=== PATIENT | female | born 1945 | race Caucasian/White ===

== ENCOUNTER → 2016-12-27 | Outpatient (CLI) | payer OTHER ==
[~2016-12-27] MED LIST: ADVAIR 250-501 EACH INH; AZITHROMYCIN 2250 MG; DIOVAN HCT 1601 EACH; DITROPAN XL5 M1 PO; HYDROCODON-ACE1 EAC7 PO; LOSARTAN-HCTZ1 EAC1 PO; LYRICA 75 MG CA75 MG PO; MECLIZINE 25 MG25 M1; NORCO 5-325 TA1 EACH PO; TRANSDERM-SCO1 PATC1; VALIUM2 MG; ZUPLENZ4 MG
== END ==
LOC: RAD 12:39
DX: M25.551 Pain in right hip (principal); R07.9 Chest pain, unspecified

== ENCOUNTER → 2018-01-23 | Outpatient (CLI) | payer OTHER | LOC: RAD 11:59 | DX: R07.9 Chest pain, unspecified (principal) ==

== ENCOUNTER → 2018-11-17 | Outpatient (CLI) | payer OTHER ==
[~2018-11-17] VITALS: Ht 160 cm; Wt 80.7 kg
[~2018-11-17] MED LIST changes: +LIPITOR 20 MG T20 M1 PO; +NORVASC5 MG PO; +PROAIR HFA8.5 GM INH; +XANAX 0.25 MG0.25 MG PO
[2018-11-17 07:07] LABS: HEMATOCRIT 41.6 % (37.0-47.0); HEMOGLOBIN 13.7 gm/dL (12.0-15.0); MCH 28.5 pg (26.0-34.0); MCV 86.2 fL (80.0-100.0); RBC 4.82 mil/uL (4.20-5.00); RDW 14.6 % (10.5-14.5); WBC 6.5 thou/uL (4.0-11.0)
[2018-11-17 07:12] VITALS: BP 166/75
[2018-11-17 07:16] LABS: CALCIUM 9.3 mg/dL (8.5-10.1); CREATININE 0.9 mg/dL (0.6-1.0); POTASSIUM 4.3 mmol/L (3.5-5.1)
--- NOTE | 2018-11-17 08:03 | EKG ---
[address] [address] ELECTROCARDIOGRAM REPORT Name: BG CLEANINGMARIANNE BAKER [facility] [id number] ������������������ Admission: 11/17/18 ������������������ Attend Phys: Benson Monahan MD, Discharge: ������������������ Date of : 43 Report #: [id number] ����������������������������������������������������������������� [id number] THIS REPORT FOR: //name// [facility] Test Date: 2018-11-17 Test Time: 07:18:39 Pat Name: LUIS MANUEL CLEANING Department: Room: Gender: F Joy Operator: ROSHAN : 1945 Requested By: Benson Monahan Order Number: [id number] MD: Trace Mendez Measurements Intervals [place] Rate: 72 P: 79 DE: 174 QRS: 54 QRSD: 88 T: 49 QT: 390 QTc: 427 Interpretive Statements Sinus rhythm Compared to ECG 09/16/2013 04:44:24 No significant changes Electronically Signed On 11-17-2018 8:03:00 CDT by Trace Mendez [email or web address] ��������������������������������������������� <ELECTRONICALLY SIGNED> ���������������������������������������� By: Trace Mendez MD ��������������������������������������������� 11/17/18802 7 7 Trace Mendez MD /ANANDA
--- NOTE | 2018-11-17 10:58 | NUR ---
1045----PT VOIDED PER BEDPAN APPROX. 350 MIL. FAMILY CONTINUES AT BEDSIDE. HAWA PROCTOR.
--- NOTE | 2018-11-19 13:52 | CATHLAB ---
[facility] [place] [address] INVASIVE PROCEDURE REPORT Name: LUIS MANUEL CLEANING [facility] #: [facility] [id number] ������������� Admission: 11/17/18 ������������� Attend Phys: Benson Monahan, Discharge: ��� ������������� ��� Date of : 43 Date of Service: 11/19/18 1351 �� Report #: [id number] �������� ��������������������������������������������[id number] THIS REPORT FOR: //name// APPROVED REPORT Study performed: 11/17/2018 07:31:14 Patient Details Patient Status: Out-Patient Room #: The patient is a 73 year-old female Event Personnel Benson Monahan Retort Fireman, Dylon Alexandre RN, Sonya, Crys Monitor, Daniel Hays RTR Scrub Procedures Performed Art Access - R femoral artery* Corby Access - R femoral vein 53431 Initial Mod Sed Same Phys/QHP Gr5y 105077 83871 Mod Sed Same Phys/QHP Ea 210681 Right and Left Heart Cath w/or w/o Coronarie 1032909 [facility] Aortogram Abdominal Peripheral Angio 503974 Hemostasis w/ Mynx Indication Chest pain Procedure Narrative The patient was brought electively to the Cardiac Catheterization Laboratory and was prepped and draped in a sterile manner. The Right Groin^ was infiltrated with 1% Lidocaine subcutaneous anesthesia. A Right Heart Catheterization was performed with a 7 Fr. Glen-Genny catheter and pressure were recorded. Cardiac outputs were obtained by the Thermal Dilution method. A PINNACLE 6FR TIF Sheath #[id number] sheath was inserted into the RFA^. Coronary angiography was performed using coronary diagnostic catheters. The right coronary system was accessed and visualized with a JR 4 catheter. The left coronary system was accessed and visualized with a JL 4 catheter. The left ventricle was accessed and visualized with a Pigtail catheter. Left ventriculogram was performed in MART projection. An aortogram of the femoral arteryabdominal aorta was performed. Pre-demployment femoral angiogram was performed . Closure device was deployed with a 6 Fr Mynx. Hemostasis was obtained with manual pressure following sheath removal without any complications. The patient tolerated the procedure well and there were no complications associated with the procedure. There was no hematoma. [address] [address] [place] [address] INVASIVE PROCEDURE REPORT Name: LUIS MANUEL CLEANING Room #: REG [facility]#: [id number] ������������� Admission: 11/17/18 ������������� Attend Phys: Benson Monahan, Discharge: ��� ������������� ��� Date of : 43 Date of Service: 11/19/18 1351 �� Report #: [id number] �������� ��������������������������������������������[id number] Intraoperative Conscious Sedation Sedation start time: 08:17 Case end Time: 08:50 Versed 3 mg Fluoro Time: 3.05 minutes Dose: DAP 3164.00 cGycm2 328 mGy Contrast Type and Amount: Omnipaque 110 ml Hemodynamics The right ventricular pressure is 40/8 mmHg. The pulmonary artery pressure is 36/18 mmHg with a mean of 24 mmHg. The mean pulmonary capillary wedge pressure is 18 mmHg. The aortic pressure is 157/73 mmHg with a mean of 102 mmHg. The left ventricular pressure is 149/7 mmHg with a mean of mmHg. The left ventricular end diastolic pressure is 17 mmHg. The cardiac output using thermo method is 4.75 L/min. The cardiac index using thermo method is 2.58 L/min/m2. Conclusion #1 successful right heart catheterization see above hemodynamics aortic output by thermodilution #2 normal left jugular size and systolic function EF 60% #3 abdominal aortogram revealing mild to moderate aortic ectasia small aneurysm formation will follow noninvasively. #4 coronary angiography revealing a right dominant system there is minimal disease in all 3 vessels no occlusive disease noted right dominant. Conditions and plan: No significant pulmonary hypertension. No significant coronary artery disease. Continue aggressive risk factor modification. I suspect her dyspnea shortness of breath is deconditioning. Will have further pulmonary evaluation. ��������������������������������������������� <ELECTRONICALLY SIGNED> ���������������������������������������� By: Benson Monahan MD, FACC ��������������������������������������������� 11/19/18 1351 1351 50 Benson Monahan MD, FACC /INF
== END | disposition home or self-care (01) ==
LOC: CATH 06:36
PROVIDERS: Internal Medicine Cardiovascular Disease
DX: I25.10 Atherosclerotic heart disease of native coronary artery without angina pectoris (principal); I71.9 Aortic aneurysm of unspecified site, without rupture; I10 Essential (primary) hypertension; J44.9 Chronic obstructive pulmonary disease, unspecified; K21.9 Gastro-esophageal reflux disease without esophagitis; Z82.49 Family history of ischemic heart disease and other diseases of the circulatory system; Z86.73 Personal history of transient ischemic attack (TIA), and cerebral infarction without residual deficits; Z87.891 Personal history of nicotine dependence; Z98.890 Other specified postprocedural states; Z87.19 Personal history of other diseases of the digestive system; Z98.41 Cataract extraction status, right eye; Z98.42 Cataract extraction status, left eye; Z88.0 Allergy status to penicillin; Z88.2 Allergy status to sulfonamides; Z88.8 Allergy status to other drugs, medicaments and biological substances; Z79.899 Other long term (current) drug therapy

== ENCOUNTER → 2018-11-25 | Outpatient (CLI) | payer OTHER ==
[~2018-11-25] VITALS: Ht 162.6 cm; Wt 80.7 kg
--- NOTE | 2018-11-26 15:29 | P ---
[facility] [place] [address] PROCEDURE REPORT Name: LUIS MANUEL CLEANING Room #: REG [facility]#: [id number] Admission: 11/25/18 ������������������ Attend Phys: Kosta Cosme Discharge: ������������������ Date of : 43 Report #: [id number] THIS REPORT FOR: //name// CC: Kosta Ruiz MD DATE OF SERVICE: 11/25/2018 PROCEDURE PERFORMED: Upper endoscopy with biopsies and esophageal dilation. HISTORY OF PRESENT ILLNESS: The patient is a 73-year-old female who underwent an upper endoscopy by myself on 05/26/2015, biopsies were positive for H. pylori and she was treated with a Prevpac at the time. 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 The patient was to be on daily PPI therapy and repeat upper endoscopy in 1 year. She has not followed up. She is not taking PPI therapy. She now reports increased dysphagia. Plan is for repeat upper endoscopy. DESCRIPTION OF PROCEDURE: The risks and benefits of the procedure were explained to the patient, those risks including but not limited to bleeding, perforation, the risk of sedation. She understood these risks and gave informed consent. Sedation was given using propofol per Anesthesia. Next, using a standard Olympus upper endoscope, the scope was placed in the patient's mouth and advanced under direct vision through the esophagus, stomach and into the second portion of the duodenum. The larynx was normal in appearance. In the upper esophagus, there appears to be a small inlet patch. Biopsies were obtained. The mid esophagus was normal. In the distal esophagus, grade B erosive esophagitis was noted. 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 Upon entering the stomach, a small hiatal hernia was noted. There was a diffuse gastritis in the gastric body. There was a single clean white based ulceration in the gastric antrum. No evidence of bleeding. Biopsies were obtained to rule out H. pylori. The pylorus was normal and patent. There was mild duodenitis noted in the duodenal bulb, the first and second portion of the duodenum were normal. The scope was then brought back up into the patient's stomach and a Savary guidewire was inserted through the scope, leaving the guidewire in place as the scope was then withdrawn. Next, a 51-Tunisian Savary dilation of the esophagus was performed without difficulty. The wire and dilator were removed. The scope was reintroduced into the patient's stomach. There was no evidence of mucosal tear after dilation. The scope was then withdrawn and the procedure terminated. The patient tolerated the procedure well. IMPRESSION: 1. Inlet patch proximal esophagus, biopsies obtained. 2. Grade B erosive esophagitis. [address] [address] PROCEDURE REPORT Name: LUIS MANUEL CLEANING Room #: REG [facility] [place]#: [id number] Admission: 11/25/18 ������������������ Attend Phys: Kosta Cosme Discharge: ������������������ Date of : 43 Report #: [id number] 3. 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 4. Small hiatal hernia. 5. Gastritis. 6. Small gastric ulcer. RECOMMENDATIONS: 1. Await biopsy results. 2. Recommend long-term daily PPI therapy. 3. Observe the patient post dilation. Thank you for allowing me to participate in her care. ��������������������������������������������� <ELECTRONICALLY SIGNED> ���������������������������������������� By: Kosta Floyd MD ��������������������������������������������� 11/26/18 1529 1110 1131 Kosta Floyd MD /nt
--- NOTE | 2018-11-27 13:08 | PATH ---
[facility] [address] [address] PATHOLOGY RPT PROCEDURE Name: LUIS MANUEL GRAMAJO Room #: REG BETH Julee.#: [id number] ������������������ Admission: 11/25/18 ������������������ Date of : 43 Discharge: Report #: [id number] Path Case #: [id number] [facility] Accession Number: [id number] . 01 Material submitted: . PART A: stomach - BX OF GASTRIC R/O GASTRITIS HX OF H. PYLORI PART B: esophagus - BX OF DISTAL ESOPHAGUS HX OF BARRETTS. Modifiers: distal PART C: esophagus - BX OF UPPER ESOPHAGUS R/O INLET PATCH/DYSPLASIA. Modifiers: upper . 01 Clinical history: . Pre-OP DX: Hx of H. pylori, dysphagia, Hx of Ramirez's Post-OP DX: Dysphagia, gastric ulcer, gastric, grade B esophagitis . 02 Diagnosis: A. Gastric mucosa, gastritis rule out H. pylori, endoscopic biopsy: - Helicobacter pylori induced moderate active gastritis. - Negative for intestinal metaplasia or atrophy. - Moderate number of Helicobacter pylori organisms identified on the properly controlled immunohistochemical stain. . B. Gastroesophageal mucosa, distal esophagus history of Ramirez's, endoscopic biopsy: - Gastric fundic-type mucosa and gastric cardia-type mucosa with moderate acute and chronic inflammation. - No definite intestinal metaplasia present, history of Ramirez's metaplasia noted. - Squamous mucosa with mild esophagitis. . C. Gastroesophageal mucosa, upper esophagus rule out inlet patch/dysplasia, endoscopic biopsy: - One fragment showing gastric cardia-type mucosa with moderate chronic inflammation; negative for intestinal metaplasia or dysplasia. Please see comment. - Fragments of squamous mucosa showing mild active esophagitis as well as reactive changes. . 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 02 Comment: C. One fragment entirely comprised of gastric cardia-type mucosa is present with moderate acute and chronic inflammation. This fragment may represent an "inlet" patch. There is no intestinal metaplasia or dysplasia present within this fragment. Please correlate clinically. 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 02 Electronically signed: . Ct Hernandez MD, Pathologist NPI- [id number] . 01 Gross description: . A. Received in formalin labeled "Luis Manuel Gramajo, BX of gastric, rule out gastritis," are 3 segments of moody soft tissue measuring 1.1 x 0.8 x 0.3 cm in aggregate dimensions and ranging from 0.3 to 0.7 cm in maximum dimension. The specimen is submitted entirely in cassette A1. . B. Received in formalin labeled "Luis Manuel Gramajo, BX of distal esophagus, Hx Ramirez's," are 2 segments of moody soft tissue measuring 1.1 x 0.3 x 0.3 cm in aggregate dimensions and ranging from 0.5 to 0.6 cm in maximum dimension. The specimen is submitted entirely in cassette B1. . C. Received in formalin labeled "Luis Manuel Gramajo, BX of upper esophagus, rule out inlet patch/dysplasia," are 2 segments of moody soft tissue measuring 0.7 x 0.2 x 0.1 cm in aggregate dimensions and ranging from 0.3 to 0.4 cm in maximum dimension. The specimen is submitted entirely in cassette C1. (TSD; 11/25/2018) TOB/TOB . 02 Pathologist provided ICD-10: K29.70, K29.00, K29.50, K20.9 . 02 CPT . 198497, 911004, 509854, F46347 Specimen Comment: A courtesy copy of this report has been sent to Specimen Comment: [phone], . Specimen Comment: Report sent to / DR FARLEY Performed at: [address], [place] [id number] MD Sony Prieto MD Phone: [phone] Performed at: [address] [id number] MD tC Hernandez MD Phone: [phone]
== END | disposition home or self-care (01) ==
LOC: GI
DX: K29.00 Acute gastritis without bleeding (principal); K29.50 Unspecified chronic gastritis without bleeding; B96.81 Helicobacter pylori [H. pylori] as the cause of diseases classified elsewhere; K22.8 Other specified diseases of esophagus; K20.8 Other esophagitis; K44.9 Diaphragmatic hernia without obstruction or gangrene; K20.9 Esophagitis, unspecified; J43.9 Emphysema, unspecified; Z86.73 Personal history of transient ischemic attack (TIA), and cerebral infarction without residual deficits; Z87.891 Personal history of nicotine dependence; I10 Essential (primary) hypertension; E78.5 Hyperlipidemia, unspecified; Z98.890 Other specified postprocedural states; Z98.84 Bariatric surgery status; Z98.41 Cataract extraction status, right eye; Z98.42 Cataract extraction status, left eye; Z79.899 Other long term (current) drug therapy; Z88.0 Allergy status to penicillin; Z88.2 Allergy status to sulfonamides; Z88.8 Allergy status to other drugs, medicaments and biological substances
CPT/HCPCS: 62110; 62900

== ENCOUNTER → 2018-11-26 | Outpatient (CLI) | payer OTHER | LOC: RAD 09:21 | DX: R91.1 Solitary pulmonary nodule (principal); R06.00 Dyspnea, unspecified ==

== ENCOUNTER → 2018-11-30 | Outpatient (CLI) | payer OTHER | LOC: CAT 09:55 | DX: R91.1 Solitary pulmonary nodule (principal) ==

== ENCOUNTER → 2019-01-05 | Outpatient (CLI) | payer OTHER | LOC: RAD 01:39 | DX: Z12.31 Encounter for screening mammogram for malignant neoplasm of breast (principal); N63.23 Unspecified lump in the left breast, lower outer quadrant ==

== ENCOUNTER → 2019-01-07 | Outpatient (CLI) | payer OTHER ==
--- NOTE | 2019-01-11 16:06 | PATH ---
[facility] [address] [address] PATHOLOGY RPT PROCEDURE Name: LUIS MANUEL GRAMAJO Room #: REG [facility] Leidy.Tala.#: [id number] ������������������ Admission: 01/07/19 ������������������ Date of : 43 Discharge: Report #: [id number] Path Case #: [id number] [facility] Accession Number: [id number] . 01 Material submitted: . breast - LEFT BREAST MASS, 3:00, 8CMFN (LEFT CHEST WALL). Modifiers: left, 3:00 . 01 Clinical history: . Left breast mass . 02 Diagnosis: Breast, left breast mass, 3:00, 8 cm from nipple (chest wall), needle core biopsy: - INVASIVE MODERATELY DIFFERENTIATED DUCTAL ADENOCARCINOMA, TAB GRADE II MEASURING 5 MM IN GREATEST DIMENSION IN A SINGLE CORE IN CONTIGUOUS LENGTH. - DUCTAL CARCINOMA IN-SITU, CRIBRIFORM TYPE AND INTERMEDIATE NUCLEAR GRADE. (IUV:tomi; 01/11/2019) QMS/01/11/2019 . 02 Comment: Specimen type: Needle core biopsy Tumor site: Left breast 3:00, 8 cm from nipple Tumor quantitation: 5 mm in greatest dimension Histologic type: Invasive ductal carcinoma Histologic grade: Tab grade II Tubules, nuclei and mitoses: 3, 2, and 1, respectively LVSI: Not identified Microcalcifications: Not identified Markers: ER, MA, Ki-67, and HER-2/ambar Block: A2 . Properly controlled p63 and smooth muscle myosin heavy chain are performed on block A2 to confirm the invasive nature of the malignancy. Both markers are lost in a 5mm span supporting the diagnosis rendered. . Co-review: Dr. Larissa Armstrong . Findings of this case are telephoned to Ms. Garcia in our breast center at 1:00 p.m. on 01/08/2019. . (IUV:tomi; 01/11/2019) . 02 Electronically signed: . Ct Hernandez MD, [place] [address] PATHOLOGY RPT PROCEDURE Name: LUIS MANUEL GRAMAJO S [facility] [id number] ������������������ Admission: 01/07/19 ������������������ Date of : 43 Discharge: Report #: [id number] Path Case #: [id number]- [id number] . 01 Gross description: . Received in formalin labeled "Luis Manuel Gramajo, left breast 3:00 8cmFN," are multiple needle cores of yellow-gallego fibrofatty tissue measuring 3.5 x 1.4 x 0.5 cm in aggregate dimensions. The tissue is submitted in its entirety in cassette A1 through A3. The cold ischemic time is unknown. The total formalin fixation time is greater than 7 hours and less than 72 hours. (TSD; 01/07/2019) TOB/TOB . 02 Pathologist provided ICD-10: C50.912 . 02 CPT . 397048, Y45936, N66841 Specimen Comment: A courtesy copy of this report has been sent to Specimen Comment: [phone], , . Specimen Comment: Report sent to ,DR LANDRUM / DR FARLEY Performed at: [address], [place] [id number] MD Sony Prieto MD Phone: [phone] Performed at: [address] [id number] [address] Hernandez MD Phone: [phone]
== END | disposition home or self-care (01) ==
LOC: ULTRA 09:36
DX: C50.012 Malignant neoplasm of nipple and areola, left female breast (principal); R92.0 Mammographic microcalcification found on diagnostic imaging of breast; Z88.0 Allergy status to penicillin; Z88.2 Allergy status to sulfonamides; Z88.8 Allergy status to other drugs, medicaments and biological substances; Z79.899 Other long term (current) drug therapy

== ENCOUNTER → 2019-01-14 | Outpatient (CLI) | payer OTHER | LOC: MRI 09:47 | DX: C50.912 Malignant neoplasm of unspecified site of left female breast (principal); N64.89 Other specified disorders of breast ==

== ENCOUNTER 2019-02-02 05:33 | Day surgery (SDC) | payer OTHER ==
[~2019-02-02] VITALS: Ht 160 cm; Wt 79.4 kg
--- NOTE | ~2019-02-02 | H ---
[facility] [address] [address] HISTORY AND PHYSICAL Name: LUIS MANUEL CLEANING Room #: PRE [facility] M.R.#: [id number] Admission: Attend Phys: Kade Mohan MD Discharge: Date of : 43 Report #: [id number] THIS REPORT FOR: //name// CC: ALVA Ruiz MD PREOPERATIVE DIAGNOSIS: Newly diagnosed left breast cancer. HISTORY OF PRESENT ILLNESS: The patient is a 73-year-old who is here for treatment of a recently diagnosed left breast cancer. The patient had complained of tightness in the lower part of her chest. She does have a history of COPD. The patient went to see Dr. Plasencia, her manufacturing helper. This was followed by workup with Cardiology and also GI. The patient had her esophagus re-dilated. Her chest x-ray showed a new lesion in the right lung. CT scan was performed that showed a right lung nodule that measured 8 mm. The patient went to for PET scan and the right lung lesion did light up and it was about 1.1 cm lesion consistent with a primary lung malignancy. An enhancement was identified in the lateral part of the left breast. She had not had any mammogram. The patient then did undergo mammogram ultrasound, which did confirm a suspicious mass and measured up to 1.7 cm on ultrasound at 3 o'clock position towards the outer edge of the breast. The patient underwent biopsy. The biopsy showed that this was an invasive moderately differentiated ductal carcinoma, grade 2. This had a high ER receptor 98%, high MS receptor 95%, HER-2 is 0 and Ki-67 was 5% only. The patient had an MRI that showed this is a confined lesion and really not much residual after the cord needle biopsy. No abnormal area in the axilla and no right breast lesion. The patient wished to have a lumpectomy. She does understand that she will follow up with radiation treatment. The patient wants to proceed. The patient is able to walk without shortness of breath. She is able to climb her 15 steps in her house, but occasionally she does have to rest. The patient is here for left lumpectomy, sentinel node biopsy. PAST MEDICAL HISTORY: Consists of cerebral aneurysm, COPD, duplication of the left ureter, essential hypertension. FAMILY HISTORY: Coronary artery disease, H. pylori infection in the past. MEDICATIONS: Albuterol, amlodipine 5 mg, atorvastatin 20 mg, fluconazole inhaler, melatonin, omeprazole. SOCIAL HISTORY: The patient does not list any allergies. FAMILY HISTORY: There are multiple family members that had lung cancer. Mother, sister and daughter all had had lung cancer. No family history of breast cancer or ovarian cancer. Family history of smoking and family history [facility] [address] [place] [address] HISTORY AND PHYSICAL Name: BG CLEANINGMARIANNE Aly Room #: PRE [facility] M.R.#: [id number] Admission: Attend Phys: Kade Mohan MD Discharge: Date of : 43 Report #: [id number] of stroke. The patient does not smoke or drink. SURGICAL PROCEDURE: The patient had a coil placed in her brain for the cerebral aneurysm. REVIEW OF SYSTEMS: Tightness in the chest. No numbness or weakness, no palpitation. PHYSICAL EXAMINATION: GENERAL: The patient is an elderly female, in no acute distress. She is not in any respiratory distress either. HEENT: Pupils react to light. Extraocular muscles are intact. Oropharynx is clear. NECK: Soft and supple. No masses, no JVD. LUNGS: Clear to auscultation. HEART: Regular rate and rhythm. No murmur or gallop. BREASTS: Shows a previous biopsy site in the lateral part of the left breast at 3 o'clock position. No other mass detected. No axillary adenopathy, no supraclavicular adenopathy. ABDOMEN: Soft, nondistended, nontender. No mass or guarding. EXTREMITIES: No cyanosis, clubbing or edema. NEUROLOGIC: Motor and sensory exam is normal. IMPRESSION: The patient with a recently diagnosed left breast cancer. It possibly is about 1.5 cm in size on ultrasound. This was initially picked up by PET scan. The patient also likely has a small lung primary. Discussion was carried out with Dr. Alva Gil, chest surgeon. He recommends treating the breast first and that the patient may have another surgery for right lobectomy. The patient understands this and she wishes to proceed. By: [phone] Kade Mohan MD /nt
--- NOTE | ~2019-02-02 | O ---
[facility] [place] [address] OPERATIVE REPORT Name: LUIS MANUEL CLEANING Room #: DEP [facility].#: [id number] Admission: 02/02/19 Attend Phys: Kade Mohan MD Discharge: 02/02/19 Date of : 43 Report #: [id number] THIS REPORT FOR: //name// CC: Kade Ruiz PATIENT OF: Asa Gil M.D. PREOPERATIVE DIAGNOSIS: Recently diagnosed left breast cancer located at 3 o'clock position laterally in the left breast. POSTOPERATIVE DIAGNOSIS: Recently diagnosed left breast cancer located at 3 o'clock position laterally in the left breast. PROCEDURES PERFORMED: 1. Left lumpectomy with preop needle localization. 2. Lowpoint node biopsy with nuclear med injection of radioisotope plus Lymphazurin. ANESTHESIA: General. SURGEON: Kade Mohan M.D. COMPLICATIONS: None. BLOOD LOSS: 20 mL. PROCEDURE NOTE FINDINGS: The sentinel node was difficult to identify with the Neoprobe through the skin. Because of this, I injected couple mL of Lymphazurin underneath the lateral part of the left nipple. This was allowed to travel into the node. The sentinel node was found with some activity from the radioisotope and also the color trapped into the sentinel node. The frozen resection of this lymph node did not show any metastatic disease. PROCEDURE NOTE: With the patient under general anesthesia, IV antibiotic was administered. Left breast and axilla was prepped and draped in sterile fashion. The localization timeout was performed. Localization needle was coming from slightly inferior. It was coming from a lateral position with a slight angle from inferior to the 3 o'clock position. The site of the tumor was marked 8 cm from the nipple with her in the supine position. This was the location where the ultrasound showed the tumor. This was medial from the needle entrance site. An ellipse of skin was excised surrounding the needle. The skin flap was then dissected free medially. Once I lifted the skin off of the site of the tumor, I can actually feel the density. Dissection was then carried medially for another couple of centimeters for at least 2 cm. Dissection was then carried superiorly. Also then, the dissection was carried posterior. This was taken [address] [address] OPERATIVE REPORT Name: LUIS MANUEL CLEANING Room #: DEP [facility]..#: [id number] Admission: 02/02/19 Attend Phys: Kade Mohan MD Discharge: 02/02/19 Date of : 43 Report #: [id number] down to underneath the breast tissue into the retromammary fat. Pretty close to the chest wall. Dissection was then carried inferiorly. This essentially then shelled out of the breast. The lateral attachment was then divided. There was no breast tissue laterally with the lumpectomy specimen removal. Specimen was then marked for the pathologist, superiorly has a short silk stitch, laterally has a longer silk stitch. Hemostasis was obtained with cautery. Two Ray-Shantel sponges were placed in the biopsy cavity. This was then covered with surgical towels. Surgical gloves were then changed. A different set of instrument was then used. The sentinel node was then identified. Over the skin, there was a very minute activity detected. This was in the typical location where the sentinel node was located. I did make the incision slightly larger, so I can dissect this area better. After dissecting through the skin and subcutaneous tissue, the lateral edge of the pectoralis major muscle was identified. This was then followed posteriorly into the axilla. After the axillary envelope was opened, there was some activity detected with the Neoprobe. This then led to the identification of the dye within the lymph node. There was a lymph node that was slightly medial, that was also removed. The sentinel node bearing area was then free. This was about 2 x 3 cm. Not containing fat tissue. The sentinel node was found and that had activity identified in a 10-second count of 145. It had pretty intense color from the Lymphazurin. The other lymph node that was removed and I could see grossly did not have any activity to speak of. There was no activity in the biopsy in the remaining axilla. Irrigation was performed, hemostasis obtained. There was a vessel that went right adjacent to the lymph node that had to be clipped with medium clips. The fascia over the axillary envelope was closed with 4-0 PDS. Skin was closed with 5-0 PDS. The lumpectomy site was also brought together. The subcutaneous tissue was brought together with 4-0 PDS. Skin was closed with 5-0 PDS. Dermabond was applied to both sides. Fluffy dressing was applied. OpSite was used for dressing. The patient tolerated the procedure well and was taken to recovery room. By: [id number] Kade Mohan MD /nt
[~2019-02-02 05:33] MED LIST changes: +MELATONIN1 MG PO; +OMEPRAZOLE 20 M20 M1 PO; +TRELEGY ELLIPT1 EACH INH
[2019-02-02 08:47] VITALS: BP 149/66
[2019-02-02] MEDS ORDERED: NORCO 5-325 TA1 EAC1 PO (13:47)
[2019-02-02 14:06] VITALS: BP 149/66
--- NOTE | 2019-02-05 12:09 | PATH ---
[facility] imbookin ([place]) [place] [address] PATHOLOGY RPT PROCEDURE Name: LUIS MANUEL GRAMAJO Room #: DEP [facility]..#: [id number] Admission: 02/02/19 Date of : 43 Discharge: 02/02/19 Report #: [id number] Path Case #: [id number] [facility] Accession Number: [id number] . 01 Material submitted: . PART A: breast - LEFT BREAST LUMPECTOMY. Modifiers: left PART B: lymph node - LEFT AXILLARY SENTINEL LYMPH NODE #1. Modifiers: left PART C: lymph node - LEFT AXILLARY LYMPH NODE. Modifiers: left . 02 Frozen section diagnosis: . FROZEN SECTION DIAGNOSIS: (Zena Hernandez M.D.) . FSB1. Lymph node (1), left axillary sentinel lymph node #1, biopsy: - No definite macro metastases seen on FS slides. . These findings are discussed with Dr. Kade Mohan in OR2 at [facility] and a written report is placed in the patient's chart. . FROZEN SECTION GROSS DECRIPTION: B. The specimen is received fresh from the OR labeled with the patient's name, and "left axillary sentinel lymph node #1" consists of an oval 1.3 x 0.5 x 0.5 cm green dyed lymph node. The specimen is bisected and entirely submitted for frozen section as FSB1, this is subsequently submitted for permanent sections as B1 and submitted for sentinel lymph node protocol. (IUV/db; 02/02/2019) . Frozen section performed at [facility], [facility] [employer] , [place] [address]. IZV/LBQ . 02 Diagnosis: A. Breast, left breast, lumpectomy: - INVASIVE MODERATELY DIFFERENTIATED DUCTAL ADENOCARCINOMA, TAB GRADE 2 IDENTIFIED IN MULTIPLE FOCI RANGING FROM 0.5 MM TO 8 MM IN GREATEST DIMENSION IN A SINGLE FOCUS. - EXTENSIVE DUCTAL CARCINOMA IN SITU, CRIBRIFORM TYPE AND INTERMEDIATE NUCLEAR GRADE. - Margins of resection free of malignancy; closest invasive carcinoma is 5 mm away from the inferior margin (please see synoptic report assembled). . A. Lymph nodes (two), left breast lumpectomy: - Reactive changes; negative for malignancy (0/2). . B. Lymph node (one), left axillary sentinel lymph node #1, biopsy: - Reactive changes; negative for malignancy (0/1). - Negative for isolated tumor cells or micrometastases on IHC (0/1). . [facility] [address] [place] [address] PATHOLOGY RPT PROCEDURE Name: LUIS MANUEL GRAMAJO Sheeba Room #: DEP [facility] Ave#: [id number] Admission: 02/02/19 Date of : 43 Discharge: 02/02/19 Report #: [id number] Path Case #: [id number] C. Lymph node (one), left axillary lymph node, biopsy: - Reactive lymph node; negative for malignancy (0/1). (IUV/db; 02/04/2019) . Surgical Pathology Cancer Case Summary . Protocol posting date: June 2017 . INVASIVE CARCINOMA OF THE BREAST: . Specimen Identification Procedure ___ Lumpectomy . Specimen Laterality ___ Left . Tumor Site: ___Left breast . Tumor Size ___ Greatest dimension of largest invasive focus >1 mm (millimeters): 8 mm . Histologic Type ___ Invasive carcinoma of no special type (ductal, not otherwise specified) . Histologic Grade (Cranston Histologic Score) Glandular (Acinar)/Tubular Differentiation ___ Score 3 (<10% of tumor area forming glandular/tubular structures) Nuclear Pleomorphism ___ Score 2 (cells larger than normal with open vesicular nuclei, visible nucleoli, and moderate variability in both size and shape) Mitotic Rate ___ Score 1 (=3 mitoses per mm2) . Tumor Focality ___ Multiple scattered foci of invasive carcinoma ranging from 0.5 mm to 8 mm. . Ductal Carcinoma In Situ (DCIS) ___ Present ___ Positive for extensive intraductal component (EIC) Architectural Patterns ___ Cribriform ___ Grade II (intermediate) . Tumor Extension [address] [address] PATHOLOGY RPT PROCEDURE Name: LUIS MANUEL GRAMAJO Room #: DEP [facility] Ave#: [id number] Admission: 02/02/19 Date of : 43 Discharge: 02/02/19 Report #: [id number] Path Case #: [id number] Skin ___ Not applicable . Nipple ___ Not applicable/ not sampled . Margins . Invasive Carcinoma Margins (required only if residual invasive carcinoma is present in specimen) ___ Uninvolved by invasive carcinoma Distance from closest margin (millimeters):5 mm Specify closest margin: inferior . DCIS Margins (required only if DCIS is present in specimen) ___ Uninvolved by DCIS (required only if residual DCIS is present in specimen) Distance from closest margin (millimeters): 2 mm Specify closest margin: medial . . Regional Lymph Nodes . ___ Uninvolved by tumor cells Number of Lymph Nodes Examined: 4 Number of Seward Nodes Examined:1 . Treatment Effect ___ No known presurgical therapy . Lymphovascular Invasion ___ Not identified . Dermal Lymphovascular Invasion ___ Not identified . Pathologic Stage Classification (pTNM, AJCC 8th Edition) Note: Reporting of pT, pN, and (when applicable) pM categories is based on information available to the pathologist at the time the report is issued. . TNM Descriptors ___ m (multiple foci of invasive carcinoma) . Primary Tumor (Invasive Carcinoma) (pT) ___ pT1b: Tumor >5 mm but less than 10 mm in greatest dimension . Category (pN) ___ (sn): Seward node(s) evaluated [address] [address] PATHOLOGY RPT PROCEDURE Name: LUIS MANUEL GRAMAJO Room #: DEP [facility] Ave#: [id number] Admission: 02/02/19 Date of : 43 Discharge: 02/02/19 Report #: [id number] Path Case #: [id number] ___ pN0: No regional lymph node metastasis identified . Distant Metastasis (pM) (required only if confirmed pathologically in this case) ___ pMx: Unknown . Clinical History The current clinical/radiologic breast findings for which this surgery is performed include: ___ Radiologic finding ___ Mass QTP/02/05/2019 . 02 Comment: Multiple mass lesions were identified grossly and these foci show extensive ductal carcinoma in situ, of cribriform-type. Scattered rare foci (at least five separate foci) of invasive carcinoma are identified in the vicinity of the DCIS in several blocks and these foci range from 0.5 mm to 8 mm. Of the twenty blocks examined, fourteen blocks show DCIS. . Immunohistochemistry was performed on multiple blocks. P63 on block A12 and smooth muscle myosin heavy chain on block A12 confirm the focus of invasive carcinoma. . AE1/AE3 is performed on block B1 and it shows no evidence of metastatic carcinoma. AE1/AE3 is performed on block C1 as well due to the presence of numerous histiocytes and shows no definite carcinoma present. . The breast prognostic markers were performed on the biopsy tissue ([id number]) and are not repeated on the current specimen. (IUV/db; 02/04/2019) . 02 Electronically signed: . Ct Hernandez MD, Pathologist NPI- [id number] . 01 Gross description: . A. The specimen is received in formalin, labeled "Luis Manuel Gramajo, left breast lumpectomy" and consists of an oriented 83 g lumpectomy specimen oriented with long suture lateral and short sutures superior. The breast tissue measures 7.4 cm L-M, 6.2 cm S-I and 4.7 cm A-P. There is an elliptical segment of unremarkable pink-moody skin on the anterior aspect measuring 4.5 x 1.1 cm. The specimen is inked as follows: superior-blue, inferior-green, medial-red, lateral-yellow, anterior-orange, and posterior-black. It is sectioned from medial to lateral revealing a circumscribed white-moody mass with previous biopsy changes measuring 2.3 x 1.0 x 0.9 cm which extends from the margins as follows: 0.4 cm anterior, [address] [address] PATHOLOGY RPT PROCEDURE Name: LUIS MANUEL GRAMAJO Room #: [facility].#: [id number] Admission: 02/02/19 Date of : 43 Discharge: 02/02/19 Report #: [id number] Path Case #: [id number] 0.8 cm inferior, 1.7 cm posterior, 1.6 cm superior, greater than 3 cm lateral, and greater than 1 cm medial. A second linear circumscribed pink-moody mass is identified, 0.3 cm lateral to the first described mass measuring 1.9 x 0.6 x 0.5 cm and extends from the margins as follows: 1.0 cm posterior, 1.5 cm inferior, 2.0 cm superior, greater than 1 cm lateral, greater than 4 cm medial, and greater than 2 cm anterior. A third mass is identified approximately 2 cm lateral/superior the second described mass measuring 0.5 x 0.4 x 0.4 cm which extends 0.3 cm from the nearest margins (superior and posterior). The rest of the parenchyma consists of yellow lobulated tissue with approximately 5% fibrous tissue and a fourth possible nodule/lymph node candidate measuring 0.5 x 0.5 cm which is located 0.6 cm from the medial margin. Precipitator sections to include the entire masses and lymph node candidate are submitted as follows: . A1-A2: Lateral, perpendicular A3-A4: First described mass relationship to inferior margin A5-A6: First described mass relationship to anterior margin A7-A10: Rest of first described mass A11: Nearest posterior margin first described mass A12-A14: Second described mass, entire to nearest margin (posterior) A15-A16 to: Third described mass relationship to nearest margins (superior/posterior) A17-A18: Fourth possible nodule/lymph node candidate, entire A19-A20: Medial margin, perpendicular . The specimen was collected at 12:45 PM on 02/02/2019 and placed in formalin at 3:12 PM. The cold ischemic time is 27 minutes and the total formalin fixation time is greater than 6 hours but less than 72 hours. . B. SEE FROZEN SECTION GROSS DESCRIPTION. . C. The specimen is received in formalin, labeled "Luis Manuel Gramajo, left axillary lymph node (not sentinel)" and consists of a segment of yellow lobulated tissue measuring 4.3 x 3.0 x 1.3 cm. Present within is a lymph node candidate measuring 1.1 x 0.8 x 0.6 cm. Sectioning reveals white-pink cut surfaces and the candidate is entirely submitted in C1. (SDY; 02/03/2019) SYU/LBQ . 02 Pathologist provided ICD-10: C50.912, D05.12 . 02 CPT . 732175, 664864, 573448, 832396, 675865, B42278, J11358 Specimen Comment: A courtesy copy of this report has been sent to Specimen Comment: [phone], . Specimen Comment: Report sent to / DR FARLEY Performed at: [address] [address] PATHOLOGY RPT PROCEDURE Name: LUIS MANUEL GRAMAJO Room #: DEP [facility] Leidy.R.#: [id number] Admission: 02/02/19 Date of : 43 Discharge: 02/02/19 Report #: [id number] Path Case #: [id number] [facility] [address] [place] [address] [address], [place], [place] [id number] MD Sony Prieto MD Phone: [phone] Performed at: [address] [id number] Hernandez MD Phone: [phone]
== END 2019-02-02 14:40 | disposition home or self-care (01) ==
LOC: OR 05:33 → TBA 05:33 → OR 09:05
DX: C50.912 Malignant neoplasm of unspecified site of left female breast (principal); I10 Essential (primary) hypertension; E78.5 Hyperlipidemia, unspecified; K21.9 Gastro-esophageal reflux disease without esophagitis; J43.9 Emphysema, unspecified; F17.210 Nicotine dependence, cigarettes, uncomplicated; Z79.891 Long term (current) use of opiate analgesic; Z88.0 Allergy status to penicillin; Z88.2 Allergy status to sulfonamides; Z88.8 Allergy status to other drugs, medicaments and biological substances; Z79.899 Other long term (current) drug therapy; Z86.73 Personal history of transient ischemic attack (TIA), and cerebral infarction without residual deficits; Z85.118 Personal history of other malignant neoplasm of bronchus and lung; Z98.41 Cataract extraction status, right eye; Z98.42 Cataract extraction status, left eye; Z86.19 Personal history of other infectious and parasitic diseases; Z98.890 Other specified postprocedural states; Z82.49 Family history of ischemic heart disease and other diseases of the circulatory system
CPT/HCPCS: 50010; 50101; 50386; 50417; 51301; 54118; 56525; 56526; 56805; 62110; 62900; 70005

== ENCOUNTER 2019-03-02 05:37 | Inpatient (IN) | payer OTHER ==
[2019-02-18 09:52] LABS: URINE BILIRUBIN NEGATIVE (Negative); URINE BLOOD 1+ (Negative); URINE CLARITY CLOUDY; URINE COLOR YELLOW; URINE GLUCOSE-RANDOM* NEGATIVE (Negative); URINE KETONES NEGATIVE (Negative); URINE NITRITE-REFLEX NEGATIVE (Negative); URINE PROTEIN (DIPSTICK) NEGATIVE (Negative); URINE SPECIFIC GRAVITY 1.025 (1.005-1.035); URINE UROBILINOGEN 0.2 E.U./dl (0.2-1.0)
[2019-02-18 09:53] LABS: ABSOLUTE NEUTROPHILS 3.4 thou/uL (1.4-8.2); BASOPHILS 0.9 % (0.0-2.0); EOSINOPHILS 1.7 % (0.0-3.0); HEMATOCRIT 42.2 % (37.0-47.0); HEMOGLOBIN 14.2 gm/dL (12.0-15.0); MCHC 33.7 g/dL (28.0-37.0); MONOCYTES 10.1 % (1.0-8.0); PLATELET COUNT 256 thou/uL (150-400); POLYS 58.3 % (36.0-66.0); RBC 4.91 mil/uL (4.20-5.00); RDW 14.7 % (10.5-14.5); URINE LEUKOCYTES-REFLEX 2+ (Negative); WBC 5.8 thou/uL (4.0-11.0)
[2019-02-18 09:59] LABS: APTT 27.3 Seconds (24.5-32.8); PROTIME 9.7 Seconds (9.3-11.4)
[2019-02-18 10:06] LABS: ALBUMIN 3.8 g/dL (3.4-5.0); POTASSIUM 3.9 mmol/L (3.5-5.1); TOTAL BILIRUBIN 0.5 mg/dL (<0.1-1.0); TOTAL PROTEIN 7.1 g/dL (6.4-8.2)
[2019-02-18 10:07] LABS: SQUAMOUS 4-10 Moderate /LPF (0-3)
[2019-02-18 10:08] LABS: CASTS None Seen /LPF (None Seen); CRYSTALS None Seen /LPF (None Seen); URINE WBC-REFLEX >25 Many /HPF (0-5)
[2019-02-18 10:10] LABS: URINE RBC 0-2 Rare /HPF (0-2)
--- NOTE | 2019-02-19 14:01 | EKG ---
[address] [place] [address] ELECTROCARDIOGRAM REPORT Name: LUIS MANUEL CLEANING Room #: PRE IN [facility]#: [id number] ������������������ Admission: ������������������ Attend Phys: Asa Gil MD Discharge: ������������������ Date of : 43 Report #: [id number] ����������������������������������������������������������������� [id number] THIS REPORT FOR: //name// [facility] Test Date: 2019-02-18 Test Time: 10:41:26 Pat Name: LUIS MANUEL CLEANING Department: Room: Gender: F Residential Caregiver: DESIRE STILES : 1945 Requested By: Asa Gil Order Number: [id number] MD: Ronnie Gonzalez Measurements Intervals [place] Rate: 66 P: 78 GA: 168 QRS: 49 QRSD: 87 T: 48 QT: 388 QTc: 407 Interpretive Statements Sinus rhythm Normal tracing Compared to ECG 11/17/2018 07:18:39 No significant changes Electronically Signed On 02-19-2019 14:01:12 CDT by Ronnie Gonzalez [email or web address] ��������������������������������������������� <ELECTRONICALLY SIGNED> ���������������������������������������� By: Ronnie Gonzalez MD, [facility] ��������������������������������������������� 02/19/19 1401 1041 1041 Ronnie Gonzalez MD, FACC /EPI
[2019-03-02] VITALS (33 sets, daily range): BP systolic 114–156; BP diastolic 62–81
[~2019-03-02] VITALS: Ht 160 cm; Wt 78.5 kg
[~2019-03-02 05:37] MED LIST changes: +IBUPROFEN 200200 M1 PO; +MELATONIN1 M2 PO; +NICOTINE TRANSD14 M1 TRANSDERM; +NORCO 5-325 TA1 EAC1 PO
--- NOTE | 2019-03-02 18:21 | NUR ---
ASSUMED CARE @ 1325, PT ARRRIVED THE UNIT WITH THE ASSIST OF NURSING STAFF AND A TRANSPORT PERSONNEL. ASSESSMENTS AND VSS COMPLETED PER ICU PROTOCOL, PT INITIALLY VERY CONFUSED AND DID NOT FOLLOW COMMANDS BUT SHE IS NOW MORE ALERT AND FOLLOWING COMMANDS. PT ARRIVED THE UNIT ON A FENTANYL [employer] GROUP MANAGER PUMP FROM PACU, CV TEAM AWARE THAT FENTANYL IS LISTED ON ALLERGIES LIST AND IS DOCUMENTED THAT IT CAUSE HALLUCINATIONS, THIS IS VERIFIED WITH MANUEL LI. PT SR ON THE MONITOR, CARDENE INITIATED, NOW OFF AT THIS TIME. PT ON 4L OF , SATS IN THE 90'S, CHEST TUBE X 2 TO -20CM. PT ON A REGULAR DIET, PT NOT REALLY EATING AT THIS TIME, INSULIN NOT GIVEN DUE TO THIS REASON. GALLEGOS IN PLACE, FALL PRECAUTIONS IN PLACE. FAMILY HERE DURING THE SHIFT TO VISIT WITH, FAMILY UPSET ABOUT THE VISITING POLICY, M[place] AND I SPOKE TO FAMILY ABOUT HOW THESE RULES HAD TO BE FOLLOWED. PLAN OF CARE- CONT TO MONITOR.
[2019-03-03] VITALS (13 sets, daily range): BP systolic 110–142; BP diastolic 58–112
--- NOTE | 2019-03-03 05:41 | NUR ---
END OF SHIFT SUMMARY: Pt initially very anxious and disoriented to situation and time. Anxiety and orientation have improved over this shift. Fentanyl [employer] HISTORY PROFESSOR turned off at 0400 and pt has tolerated oral pain med this a.m. Zofran given x2 for nausea with adequate relief obtained. Pt's oral intake and urine output have both increased over the shift (800 cc urine this shift). Right lateral chest tubes remain patent, small air leak noted at 0400 check, no crepitus. 70 cc light red sero-sanguinous drainage out this shift.
[2019-03-03 05:49] LABS: HEMATOCRIT 34.8 % (37.0-47.0); HEMOGLOBIN 11.4 gm/dL (12.0-15.0); MCH 28.7 pg (26.0-34.0); MCHC 32.7 g/dL (28.0-37.0); MCV 87.7 fL (80.0-100.0); RBC 3.97 mil/uL (4.20-5.00); RDW 14.8 % (10.5-14.5)
[2019-03-03 06:13] LABS: CALCIUM 8.3 mg/dL (8.5-10.1); POTASSIUM 4.6 mmol/L (3.5-5.1)
--- NOTE | 2019-03-03 10:39 | NUR ---
Chart reviewed and case discussed with the care team. Sugar Mixer visited with the pt and her dtrs at bedside. She is in the ICU s/p thoractomy. She is conversant and able to answer cm assessment questions. Dtrs confirm that the pt was indep prior to admission and lives with her spouse. He works and is supportive. The pt has 3 dtrs and they are all involved and plan to assist the pt at ut. The pt denies any dme or hh history. Cm role introduced. Family reports that the pt has friends that live with them as well so there is always someone home. She has an adult son with Downs syndrome who also lives with them. They have a bedroom on the main level that she can use so she does not need to go upstairs to the master bedroom. Will follow.
--- NOTE | 2019-03-03 14:19 | NUR ---
ASSUMED CARE OF PT AT 0645. PT FORGETFUL ABOUT CONVERSATIONS. ADEMENT THAT SHE SHOULD BE ABLE TO HAVE HER FAMILY IN THE ROOM AT ALL TIMES BECAUSE "DR FORREST SAID I COULD". DR FARLEY, HER PCP, STATES PT IS NORMALLY FORGETFUL AND SHE IS CONFUSED, WHICH IS HER BASELINE. PRN NORCO FOR PAIN. GAVE PT A NEW INCENTIVE SPRIOMETER TO WORK ON DEEP BREATHING. UP WITH THERAPY TO THE CHAIR, PT STANDS READILY BUT STATES SHE FEELS WEAK. MANIPULATIVE CONVERSATION. BEGAN CRYING WHEN TALKING TO MANUEL AFTER SHE TX TO CCU. STATES SHE DIDN'T THINK SHE WAS GOING TO MOVE OUT OF THE ICU TODAY, AND THAT SHE CAN'T BREATHE. O2 HAD BEEM TIRATED DOWN TO 2L FROM 4L. SUGGESTED A CONTINUOUS PULSE OX.
--- NOTE | 2019-03-03 16:32 | NUR ---
PT TRANSFERED TO UNIT FROM THE ICU POST OP DAY 1 R UPPER LOBEECTOMY. PT ORIENTED TO ROOM AND BEDSPACE- PT UP IN THE CHAIR. ASSESSMENT CHARTED - CHEST TUBES X 2 INSITU WITH LOURDES DRESSING PRESENT TO R SCAPULA AREA. BROCK SMALL AMOUNTS OF DIET AND FLUIDS. NO REQUESTS FOR PAIN MEDICATION SINCE ARRIVAL TO THE UNIT. FAMILY AT THE BEDSIDE. APPEARS TO BE RESING IN THE RECLINER AT THE PRESENT TIME.
[2019-03-04 00:25] VITALS: BP 134/70
[2019-03-04 04:09] VITALS: BP 143/84
[2019-03-04 08:52] VITALS: BP 143/80
--- NOTE | 2019-03-04 09:35 | NUR ---
Pt requesting staw ensure with meals, will order.
[2019-03-04 11:30] VITALS: BP 124/83
[2019-03-04 12:07] LABS: ABSOLUTE NEUTROPHILS 8.2 thou/uL (1.4-8.2); BASOPHILS 0.4 % (0.0-2.0); EOSINOPHILS 0.6 % (0.0-3.0); HEMATOCRIT 37.7 % (37.0-47.0); HEMOGLOBIN 12.2 gm/dL (12.0-15.0); LYMPHOCYTES 18.5 % (24.0-44.0); MCH 28.6 pg (26.0-34.0); MCHC 32.2 g/dL (28.0-37.0); MCV 88.6 fL (80.0-100.0); MONOCYTES 11.7 % (1.0-8.0); PLATELET COUNT 232 thou/uL (150-400); POLYS 68.8 % (36.0-66.0); RBC 4.26 mil/uL (4.20-5.00); RDW 14.9 % (10.5-14.5); WBC 11.9 thou/uL (4.0-11.0)
--- NOTE | 2019-03-04 14:55 | NUR ---
ASSESSMENT CHARTED. PT ALERT AND ORIENTED WITH FORGETFULNESS. VSS. RECEIVED PRN PAIN MED WITH PARTIAL. CHEST TUBE INTACT. LOURDES DRESSING C/D/I WITH WOUND VAC. UP IN THE CHAIR THIS SHIFT. NO CARDIAC OR RESPIRATORY DISTRESS NOTED. WILL CONTINUE TO MONITOR.
[2019-03-04 16:37] VITALS: BP 129/108
[2019-03-04 16:55] LABS: URINE BILIRUBIN NEGATIVE (Negative); URINE BLOOD NEGATIVE (Negative); URINE CLARITY CLEAR; URINE COLOR YELLOW; URINE GLUCOSE-RANDOM* NEGATIVE (Negative); URINE KETONES NEGATIVE (Negative); URINE LEUKOCYTES-REFLEX NEGATIVE (Negative); URINE NITRITE-REFLEX NEGATIVE (Negative); URINE PROTEIN (DIPSTICK) NEGATIVE (Negative); URINE SPECIFIC GRAVITY <= 1.005 (1.005-1.035); URINE UROBILINOGEN 0.2 E.U./dl (0.2-1.0)
[2019-03-04 19:53] VITALS: BP 143/68
[2019-03-05 00:01] VITALS: BP 119/67
[2019-03-05 03:44] VITALS: BP 138/79
--- NOTE | 2019-03-05 04:32 | NUR ---
PT RESTING OFF AND ON TONIGHT IN BETWEEN SITTING UP IN CHAIR AND BACK IN BED WHICH SHE IS CURRENTLY. PT SR ON MONITOR. PT CONTINUES ON 2L NC. PT HAS BEEN OFFERED PAIN MEDS MULTIPLE TIMES BUT HAS ONLY WANTED TO TAKE IT ONCE TONIGHT. PT RIGHT CT SITE HAS BEEN REINFORCED WITH GAUZE AND ADDITIONAL TEGADERM. PT CT HAD 510ML OUT OVERNIGHT. PT APPEARS WEAK AND EXHAUSTED.
[2019-03-05 05:44] LABS: CALCIUM 9.3 mg/dL (8.5-10.1); CREATININE 0.8 mg/dL (0.6-1.0); MAGNESIUM 2.1 mg/dL (1.8-2.4); POTASSIUM 3.9 mmol/L (3.5-5.1)
[2019-03-05 05:52] LABS: ABSOLUTE NEUTROPHILS 5.2 thou/uL (1.4-8.2); BASOPHILS 0.7 % (0.0-2.0); EOSINOPHILS 1.7 % (0.0-3.0); HEMATOCRIT 37.5 % (37.0-47.0); HEMOGLOBIN 11.9 gm/dL (12.0-15.0); LYMPHOCYTES 25.1 % (24.0-44.0); MCH 28.5 pg (26.0-34.0); MCHC 31.7 g/dL (28.0-37.0); MCV 89.8 fL (80.0-100.0); POLYS 60.5 % (36.0-66.0); RBC 4.17 mil/uL (4.20-5.00); RDW 14.4 % (10.5-14.5); WBC 8.6 thou/uL (4.0-11.0)
[2019-03-05 06:18] LABS: PLATELET COUNT 154 thou/uL (150-400)
[2019-03-05 08:00] VITALS: BP 143/82
[2019-03-05 12:00] VITALS: BP 145/70
[2019-03-05 16:00] VITALS: BP 144/69
--- NOTE | 2019-03-05 16:33 | NUR ---
ASSESSMENT CHARTED. PT ALERT AND ORIENTED WITH FORGETFULNESS. PRN PAIN MED GIVEN WITH PARTIAL RELIEF. PARTICIPATED IN PT/OT. UP IN THE CHAIR THIS SHIFT. CHEST TUBE INTACT WITH WOUND VAC. NO CARDIAC OR RESPIRATORY DISTRESS NOTED. WILL CONTINUE TO MONITOR.
--- NOTE | 2019-03-05 17:56 | NUR ---
Pt is progressing postop and working with therapy. Family is very attentive. Will f/u Friday to see if HH or snf is indicates. Pt and family hoping she will be able to go home with outpt f/u at dc once her chest tubes are dc'd.
--- NOTE | 2019-03-05 19:06 | PATH ---
[facility] [address] [place] [address] PATHOLOGY RPT PROCEDURE Name: LUIS MANUEL GRAMAJO Room #: 205-P ADM IN M.R.#: [id number] ������������������ Admission: 03/02/19 ������������������ Date of : 43 Discharge: Report #: [id number] Path Case #: [id number] LCA Accession Number: [id number] . 01 Material submitted: . PART A: lung - RIGHT UPPER LOBE WEDGE RESECTION - FS. Modifiers: right, upper PART B: lymph node - RIGHT HILAR LYMPH NODE. Modifiers: right PART C: lymph node - RIGHT HILAR LYMPH NODE #2. Modifiers: right PART D: lung - RIGHT UPPER LOBE. Modifiers: right, upper PART E: lymph node - RIGHT HILAR LYMPH NODE #3. Modifiers: right PART F: lymph node - RIGHT HILAR LYMPH NODE #4. Modifiers: right PART G: lymph node - LEVEL 4 MEDIASTINAL LYMPH NODE PART H: lymph node - LEVEL 7 SUBCARINAL LYMPH NODE . 01 Clinical history: . History of ER positive and FL positive multifocal breast cancer diagnosed recently. Now undergoing wedge resection and lobectomy. . Pre-op diagnosis: Lung mass Post-op diagnosis: Carcinoma . 02 Frozen section diagnosis: . FROZEN SECTION DIAGNOSIS (Ct Hernandez MD) . FSA1, Lung, right upper lobe wedge resection: - POSITIVE FOR MALIGNANCY; INVASIVE CARCINOMA. . These findings are discussed with Dr. Asa Gil in OR-7 at [facility] and a written report is placed in the patient's chart. (IUV:tomi; 03/02/2019) . . Frozen section performed at [facility], [address] [place] [address]. . . FROZEN SECTION GROSS DESCRIPTION: . A. Specimen is received fresh from the OR labeled with the patient's name, and "right upper lobe wedge resection", consists of a triangular specimen measuring 4 x 3.5 x 1.5 cm in greatest dimension. Two stapled edges are identified, each measuring 4.5 and 3.8 cm. There is a focal puckered area measuring 0.5 x 0.5 square millimeters. This area is inked black. The parenchymal margins grossly appear free of the mass, and are at least 1mm away. At this point, the specimen is serially sectioned and it shows an approximately 1.6 x 1.6 x 1.6 cm lesion located within the center of this tissue. A auto claim representative section is submitted for frozen section labeled [facility] [place] [address] PATHOLOGY RPT PROCEDURE Name: LUIS MANUEL GRAMAJO Room #: 205-P [facility] IN .R.#: [id number] ������������������ Admission: 03/02/19 ������������������ Date of : 43 Discharge: Report #: [id number] Path Case #: [id number] FSA1, this is subsequently submitted for permanent sections as A1. The unfrozen portion of the tumor is submitted for permanent sections only as A2 and A3 (this includes the area of the pleural puckering). A auto claim representative section of the unremarkable portion of the lung parenchyma is submitted in A4 for permanent sections only. SHERIDAN/DAVIDS . 02 Diagnosis: A. Lung, right upper lobe, wedge resection: - INVASIVE MODERATELY DIFFERENTIATED ADENOSQUAMOUS CARCINOMA, MEASURING 1.6 CM IN GREATEST DIMENSION, PLEASE SEE SYNOPTIC REPORT/SURGICAL PATHOLOGY CANCER CASE SUMMARY I. - Negative for visceral pleural invasion. - Parenchymal margin free of malignancy. . B. Lymph node (fragment of 1 lymph node), right hilar lymph node, biopsy: - Reactive lymph node with pigmented macrophages. - Negative for malignancy (0/1). . C. Lymph node (fragment of 1 lymph node), right hilar lymph node, biopsy: - Reactive lymph node with pigmented macrophages. - Negative for malignancy (0/1). . D. Lung, right upper lobe, lobectomy: - INVASIVE MODERATELY DIFFERENTIATED ADENOCARCINOMA ACINAR PREDOMINANT WITH LEPIDIC SPREAD, MEASURING 2.2 CM IN GREATEST DIMENSION. PLEASE SEE SYNOPTIC REPORT/SURGICAL PATHOLOGY CANCER CASE SUMMARY II. - Margins of resection free of malignancy; tumor identified underneath the stapled line along the bronchial margin. - Focal lymphovascular space invasion present. - One hilar lymph node with reactive changes and pigmented macrophages; negative for malignancy (0/1). . E. Lymph node (fragment of 1 lymph node), right hilar lymph node, biopsy: - Reactive lymph node with pigmented macrophages. - Negative for malignancy (0/1). . F. Lymph node (fragment of 1 lymph node), right hilar lymph node, biopsy: - Reactive lymph node with pigmented macrophages. - Negative for malignancy (0/1). . G. Lymph nodes (2), level IV mediastinal lymph nodes, dissection: - Reactive lymph nodes with pigmented macrophages. - Negative for malignancy (0/2). . H. Lymph nodes (9), level VII subcarinal lymph nodes, dissection: - Reactive lymph nodes with pigmented macrophages. [facility] [address] [place] [address] PATHOLOGY RPT PROCEDURE Name: LUIS MANUEL GRAMAJO Room #: 205-P ADM IN .R.#: [id number] ������������������ Admission: 03/02/19 ������������������ Date of : 43 Discharge: Report #: [id number] Path Case #: [id number] - Negative for malignancy (0/). . (IUV:tests superintendent; 03/05/2019) . . SURGICAL PATHOLOGY CANCER CASE SUMMARY I . Protocol posting date: November 2016 . LUNG: Procedure- Wedge resection Specimen Laterality- Right Tumor Site- Upper lobe of lung Tumor Size- 1.6 cm in greatest dimensions Tumor Focality- Synchronous primary tumors in same lobe Histologic Type- Adenosquamous carcinoma Histologic Grade- G2: Moderately differentiated Spread Through Air Spaces- Not identified Visceral Pleura Invasion- Not identified Lymphovascular Invasion- Not identified Direct Invasion of Adjacent Structures- No adjacent structures present Margins- All margins are uninvolved by tumor Margins examined: Bronchial, Vascular and Visceral Pleura Distance of invasive carcinoma from closest margin (centimeters): 0.5 mm Specify closest margin: Visceral Pleural Treatment Effect- No known presurgical therapy Regional Lymph Nodes- Number of Lymph Nodes Examined: 16 Number of Lymph Nodes Involved: 0 Specify sergei station(s) examined: Hilar nodes, level IV mediastinal lymph nodes and level VII subcarinal lymph nodes. . . Pathologic Stage Classification (pTNM, AJCC 8th Edition) . TNM Descriptors- m (multiple primary tumors) Primary Tumor (pT) pT1b: Tumor >1 cm, but =2 cm in greatest dimension Regional Lymph Nodes (pN) pN0: No regional lymph node metastasis . Distant Metastasis (pM): pMx (unknown) . . SURGICAL PATHOLOGY CANCER CASE SUMMARY II . Protocol posting date: November 2016 . LUNG: Procedure- Lobectomy [facility] [address] [place] [address] PATHOLOGY RPT PROCEDURE Name: LUIS MANUEL GRAMAJO Sheeba Room #: 205-P [facility] IN ..#: [id number] ������������������ Admission: 03/02/19 ������������������ Date of : 43 Discharge: Report #: [id number] Path Case #: [id number] Specimen Laterality- Right Tumor Site- Upper lobe of lung Tumor Size- 2.2 cm in greatest dimensions Tumor Focality- Synchronous primary tumors in same lobe Histologic Type- Invasive adenocarcinoma, acinar predominant with lepidic spread Histologic Grade- G2: Moderately differentiated Spread Through Air Spaces- Present Visceral Pleura Invasion- Not identified Lymphovascular Invasion- Identified Direct Invasion of Adjacent Structures- No adjacent structures present Margins- All margins are uninvolved by tumor Margins examined: Bronchial, Vascular and Visceral Pleura Distance of invasive carcinoma from closest margin (centimeters): 1 mm Specify closest margin: Parenchyma at the stapled bronchial margin Treatment Effect- No known presurgical therapy Regional Lymph Nodes- Number of Lymph Nodes Examined: 16 Number of Lymph Nodes Involved: 0 Specify sergei station(s) examined: Hilar nodes, level IV mediastinal lymph nodes and level VII subcarinal lymph nodes. . . Pathologic Stage Classification (pTNM, AJCC 8th Edition) . TNM Descriptors- m (multiple primary tumors) Primary Tumor (pT) pT1c: Tumor >2 cm but =3 cm in greatest dimension Regional Lymph Nodes (pN) pN0: No regional lymph node metastasis . Distant Metastasis (pM): pMx (unknown) MBR/03/05/2019 . 02 Comment: Immunohistochemical stains are performed on the wedge resection due to the provided history of breast cancer on block A3. The tumor shows nuclear reactivity with p40, and p63. In addition, there are several nuclei as well as foci that shows strong nuclear reactivity with TTF-1 as well as granular reactivity with Napsin-A. The ER and FL are nonreactive within the tumor. The immunohistochemical stains support the diagnosis rendered. A VVG special elastin special stain is performed to identify any possible visceral pleural invasion and none is identified. . In addition, sections of the parenchyma submitted along the stapled line adjacent to the bronchial margin show a 2.2 cm invasive adenocarcinoma with lepidic spread as well as intraparenchymal spread. Please correlate clinically for a complete resection of this tumor. . [address] [address] PATHOLOGY RPT PROCEDURE Name: LUIS MANUEL GRAMAJO Room #: 205-P [facility] IN ..#: [id number] ������������������ Admission: 03/02/19 ������������������ Date of : 43 Discharge: Report #: [id number] Path Case #: [id number] Dr. Larissa Armstrong has seen auto claim representative slides of this case and concurs with my diagnosis. Findings of this case are discussed with Dr. Asa Gil in the evening of 03/04/19, and in the morning of 03/05/19. . (IUV:tests superintendent; 03/05/2019) . 02 Electronically signed: . Ct Hernandez MD, Pathologist NPI- [id number] . 01 Gross description: . A. Please see gross description dictated by the pathologist located under the Frozen Section portion of this case. . B. The specimen is received in formalin, labeled "Luis Manuel Gramajo, right hilar lymph node". Received is a segment of gallego-brown lobulated tissue measuring 0.7 x 0.5 x 0.4 cm in greatest dimensions. Sectioning reveals gallego-black to anthracotic cut surfaces. The specimen is bisected and entirely submitted in cassette B1. . C. The specimen is received in formalin, labeled "Luis Manuel Gramajo, right hilar lymph node #2". Received is a segment of brown-like lobulated tissue measuring 1.4 x 0.5 x 0.4 cm in greatest dimensions. The specimen is bisected and entirely submitted in cassette C1. . D. The specimen is received in formalin, labeled "Luis Manuel Gramajo, right upper lobe". Received is a 138 g lobectomy specimen measuring 12.4 x 8.4 x 3.8 cm in greatest dimensions. There is a staple line present along the bronchial margin measuring 8.3 cm. The josefina are removed and the new margin is inked black. The pleural surface is blue-gallego and smooth to slightly wrinkled in appearance. Along the opposite margin, there is a segment staple line present measuring 7.4 cm. At the stapled margin of resection, there is a slightly firm, pale moody possible mass measuring 2.2 x 1.0 x 0.8 cm in greatest dimensions. Sectioning through the remainder of the specimen reveals bright red lung parenchyma. The specimen is submitted representatively as follows: . D1 bronchial and vascular margins, en face D2-D4 auto claim representative sections of parenchyma near staple line opposite bronchial margin D5-D6 auto claim representative sections of possible mass near stapled margin of resection. (CAA; 03/03/2019) . After initial microscopic examination, the remainder of the slightly firm possible mass near the surgical margin is submitted in cassettes D7 and D8. (CAA; 03/04/2019) [address] [place] [address] PATHOLOGY RPT PROCEDURE Name: LUIS MANUEL GRAMAJO Room #: 205-P ADM IN M.R.#: [id number] ������������������ Admission: 03/02/19 ������������������ Date of : 43 Discharge: Report #: [id number] Path Case #: [id number] . E. The specimen is received in formalin, labeled "Luis Manuel Gramajo, right hilar lymph node #3". Received is a segment of brown-black lobulated tissue measuring 1.0 x 0.6 x 0.5 cm in greatest dimensions. The specimen is bisected and entirely submitted in cassette E1. . F. The specimen is received in formalin, labeled "Luis Manuel Gramajo, right hilar lymph node #4". Received is a segment of brown-black lobulated tissue measuring 0.9 x 0.5 x 0.4 cm in greatest dimensions. The specimen is submitted entirely in cassette F1. . G. The specimen is received in formalin, labeled "Luis Manuel Gramajo, level four mediastinal lymph node". Received are two segments of moody-brown to brown-black lobulated tissue measuring 0.8 x 0.5 x 0.2 and 0.8 x 0.6 x 0.3 cm in greatest dimensions. The specimen is submitted entirely in cassette G1. . H. The specimen is received in formalin, labeled "Luis Manuel Gramajo, level seven subcarinal lymph node". Received is a segment of brown-black lobulated tissue measuring 1.7 x 0.9 x 0.5 cm in greatest dimensions. Sectioning reveals red-brown to anthracotic cut surfaces. The specimen is submitted entirely in cassette H1. (CAA; 03/03/2019) QAC/QMS . 02 Pathologist provided ICD-10: C34.11 . 02 CPT . 501476, 215491, 629877, [id number], 307013, [id number], [id number], [id number] Specimen Comment: A courtesy copy of this report has been sent to Specimen Comment: [phone]. Specimen Comment: Report sent to DR GIL / DR FARLEY Performed at: [address], [place] [id number] MD Sony Prieto MD Phone: [phone] Performed at: [address] [id number] [address] Hernandez MD Phone: [phone]
[2019-03-05 20:34] VITALS: BP 125/79
[2019-03-06 03:14] VITALS: BP 127/72
--- NOTE | 2019-03-06 05:50 | NUR ---
ASSUME CARE 1900. PT/VITALS STABLE. INTERMITTENT INCISIONAL PAIN NOTED. TOLERATES ACTIVITY WELL. UP STB ASSIST TO BATHROOM. ADEQUATE REST NOTED. POOR COUGH AND DEEEP BREATHING EFFORTS. ENCOURAGED TO COUGH UP SPUTUM. SR ON MONITOR. ASSESSMENT CHARTED. PROGRESSING WELL WITH POC. PLAN IS REMOVE 1 CHEST TUBE TODAY. SEROUSSANG DRAINAGE NOTED. NEGATIVE 20 SUCTION ACTIVE. WILL CONTINUE TO MONITOR PATIENT AND FOLLOW WIHT POC
[2019-03-06 07:50] VITALS: BP 117/89
[2019-03-06 11:42] VITALS: BP 135/65
--- NOTE | 2019-03-06 15:28 | NUR ---
ASSESSMENT CHARTED. PT ALERT AND ORIENTED. PLEASANT AND COOPERATIVE WITH CARES. CHEST TUBE INTACT. SURGICAL INCISION LOURDES DRESSING C/D/I WITH WOUND VAC. UP IN THE CHAIR THIS SHIFT. AMBULATED X4 THIS AM. PRN PAIN MED GIVEN WITH PARTIAL RELIEF. NO CARDIAC OR RESPIRATORY DISTRESS NOTED. WILL CONTINUE TO MONITOR.
[2019-03-06 16:07] VITALS: BP 123/58
[2019-03-06 20:00] VITALS: BP 115/64
--- NOTE | 2019-03-07 04:17 | NUR ---
ASSUME CARE 1900. PT/VITALS STABLE. PERSONNEL SPECIALIST=MITTENT INCISINAL PAIN. EPISODE OF SOA ESPECIALLY WITH ACTIVITY NOTED. O2 INBREASED TO 3LNC. SOME REST NOTED THROUGH THE NIGHT. CHEST TUBE TO WATER SEAL. ST NOTED MOSTLY ON MONITOR. POOR COUGH EFFORT. ENCOURAGED TO COUGH AND DEEP BREATHE. POSSIBLE REMOVAL OF ONE CHEST TUBE TODAY. PT RESTING WITH NO DISTRESS THIS AM. ASSESSMENT CHARTED. PROGRESSING WELL WITH POC. PLAN IS TO FOLLOW WITH GOALS TO IMPROVE RESP FUNCTION AND PUL CHEST TUBES OUT. WILL CONTINUE TO MONITOR AND FOLLOW WITH POC
[2019-03-07 04:30] VITALS: BP 144/73
[2019-03-07 05:11] LABS: HEMATOCRIT 39.2 % (37.0-47.0); HEMOGLOBIN 12.5 gm/dL (12.0-15.0); MCH 28.6 pg (26.0-34.0); MCHC 31.9 g/dL (28.0-37.0); MCV 89.7 fL (80.0-100.0); RBC 4.37 mil/uL (4.20-5.00); RDW 14.4 % (10.5-14.5); WBC 7.1 thou/uL (4.0-11.0)
[2019-03-07 05:25] LABS: CALCIUM 9.2 mg/dL (8.5-10.1); CREATININE 0.7 mg/dL (0.6-1.0); POTASSIUM 3.8 mmol/L (3.5-5.1)
[2019-03-07 08:00] VITALS: BP 138/73
[2019-03-07 13:10] VITALS: BP 143/120
--- NOTE | 2019-03-07 15:23 | NUR ---
ASSESSMENT CHARTED. VSS. CHEST TUBE PULLED OUT THIS AM. PT ALERT AND ORIENTED. AMBULATED X5 THIS SHIFT. NO CARDIAC OR RESPIRATORY DISTRESS NOTED. WILL CONTINUE TO MONITOR.
[2019-03-07 20:21] VITALS: BP 141/80
[2019-03-08] VITALS (7 sets, daily range): BP systolic 135–147; BP diastolic 68–93
--- NOTE | 2019-03-08 03:31 | NUR ---
RECEIVED PT'S CARE AT 1910; PT. ON BED; AOX4; RELATIVE AT THE BED SIDE; PER RUNNER REPORT; LEADS OFF; PT. DID NOT WANT PUT LEADS BACK UNTIL GET DRESS; PT. UPSET WHEN ENTER TO ROOM; SHOUT "LET ME GET DRESS"; EDUCATED ABOUT THE IMPORTANCE OF PUTTING HEART MONITOR LEADS BACK; AFTER ABOUT A MINUTE PT. ALLOW NURSE TO ENTER ROOM; LEADS OFF; LOURDES BOX OFF; EDUCATED ABOUT THE IMPORTANCE OF MANTAIN LEADS ON CHEST; EDUCATED ABOUT NOT DISCONNECTING LOURDES BOX; NO ANSWER BACK; SPOUSE REQUESTED TO DISCONEECT LOURDES BOX IN ORDER TO UNTANGLE FROM UNDERWEAR; EDUCATED AGAIN THE IMPORTANCE OF NOT DISCONECTING LOURDES BOX; NO ANSWER BACK; PT. ST. "TOMORROW I AM ASKING DR. FORREST TO PUT AN ORDER TO TAKE ALL THESE [ HEART MONITOR & LOURDES BOX] OUT"; REFUSED SCHEDULE MEDICATION; ST. "I DO NOT UNDERSTANDAND WHY IS ON MY LIST"; "I DO NOT TAKE IT"; EDUCATED ABOUT SOMETIMES PHYSICIAN PRESCRIBED MELATONIN IN ORDER TO HELP PT. SLEEP; ST. UNDERSTANDING; REQUESTED PRN PAIN MEDICATION LATER ON THE NIGHT; PRN PAIN MEDICATION GIVEN; RE-ASSESSMENT PT. ST. DECREASED PAIN; AROUND 0100 ROUNDINGS; PT. ST. FEELING "UNEASY"; ST "I DO NOT LIKE NOT TO BE IN CHARGE OF MY BODY"; EDUCATED ABOUT HAVING MELATONIN TO REST; REQUESTED PRUNE JUICE; NOTIFIED ABOUT HAVING PRN MEDICATION TO HELP WITH CONSTIPATION; ST. "THE BOMB" [MIRALAX]; AT 0245 ROUDINGS PT. ON BED RESTING WITH EYES CLOSED; MONITORING; ASSESSMENT CHARGED; FOLLOWING POC; WILL PASS ON REPORT.
--- NOTE | 2019-03-08 10:48 | NUR ---
Met with patient who is anticipated to dc home today. she is agreeable to HH and prefers [facility]. SP with therapy who reports will need walker for home and possible need for home oxygen. SAT/Excercise
[2019-03-08] MEDS ORDERED: NORCO 5-325 TA1 EAC1 PO (13:09)
[2019-03-08] MEDS ORDERED: ACETAMINOPHEN325 M1 PO (13:09)
[2019-03-08] MEDS ORDERED: MIRALAX17 GM PO (13:09)
--- NOTE | 2019-03-08 13:28 | NUR ---
FAXED REFERRAL TO [facility] SPOKE WITH SYD IN INTAKE SHE RECEIVED REFERRAL AND CAN ACCEPT AT [place]. DCP TO FOLLOW.
--- NOTE | 2019-03-08 14:52 | NUR ---
PT CARE ASSUMED APPROX 0700. PT ALERT AND ORIENTED X4. REPORTS RIGHT FLANK INCISIONAL PAIN 01/06. PAIN MANAGED WITH PO MEDS. PT REPORTS ADEQUATE PAIN MANAGEMENT. REPORTS SOA WITH EXERTION. EXERCISE SAT DONE TO GET PT HOME O2 ON DISCHARGE. VSS. CV TEAM HAS ROUNDED TWICE. APPROVES OF DISCHARGE. DISCHARGE PAPERWORK REVIEWED WITH PT AND DAUGHTER. BOTH DENY QUESTIONS AND CONCERNS REGARDING POST HOSPITAL CARE, DR F/U AND/OR INCISION CARE. LOURDES DSG REMOVED RIGHT PT WAS LEAVING PER GUILLERMO JACKSON VERBAL ORDERS. IV OUT, TELE OFF. HOSPITAL STAFF ESCORTED PT OUT.
--- NOTE | 2019-03-08 14:56 | NUR ---
Patient to ne home. reviewed HH care and patient prefers outpatient initally but then agreeable to HH care. She reports she wants to have HH care for short time and transition to outpatient therapy here at [facility]. Patients PCP Dr Ruiz. She prefers [facility] for HH care. Verfied addresss and phone number. Per PT patient needs walker for home. Issued walker for home use via [facility] [employer]. [facility] provided oxygen for home use. no further needs
--- NOTE | 2019-03-12 20:57 | O ---
[facility] [address] [place] [address] OPERATIVE REPORT Name: LUIS MANUEL CLEANING Room #: 205-P [facility] IN M.R.#: [id number] Admission: 03/02/19 ������������������ Attend Phys: Rashaad Metzger MD Discharge: 03/08/19 ������������������ Date of : 43 Report #: [id number] THIS REPORT FOR: //name// CC: Asa Ruiz DATE OF SERVICE: 03/02/2019 PREOPERATIVE DIAGNOSIS: Pulmonary nodule, right upper lobe. POSTOPERATIVE DIAGNOSIS: Pulmonary nodule, right upper lobe. OPERATION: Bronchoscopy, right thoracotomy with upper pulmonary lobectomy, with mediastinal node dissection. SURGEON: Asa Gil MD MANAGER ASSESSMENT: GUILLERMO Lam. ANESTHESIA: General. INDICATIONS: The patient is a 73-year-old seen for Dr. Azael Plasencia. The patient has a right upper lobe solitary nodule that is active by PET scan. No other involvement is noted. FINDINGS AND TECHNIQUE: After general anesthesia was established, flexible diagnostic bronchoscopy was performed. No endobronchial lesions were noted. Double lumen endotracheal tube was placed and its position ascertained under bronchoscopic guidance. The patient was positioned with right side up. Exposure was obtained through posterolateral thoracotomy using the fifth interspace and a rib sparing, nerve sparing approach. The lesion in the upper lobe was identified and a wedge resection was done with josefina to provide an excisional biopsy. Frozen section of this revealed carcinoma. With the thought that this was a primary lung cancer, the lobectomy was performed. The fissure was developed and the bronchus was dissected to identify the node at the upper lobe bronchus intermedius takeoff. Dissection then continued anteriorly to include the branches of the truncus anterior. The pulmonary arteries to the upper lobe were ligated and divided. The pulmonary venous branches to the upper lobe were ligated and divided, both of these were oversewn with Prolene. The fissure was developed. The recurrent arterial branch to the upper lobe was ligated and divided. The fissures were divided [facility] [address] [place] [address] OPERATIVE REPORT Name: LUIS MANUEL CLEANING Room #: 205-P [facility] IN [facility].#: [id number] Admission: 03/02/19 ������������������ Attend Phys: Rashaad Mtezger MD Discharge: 03/08/19 ������������������ Date of : 43 Report #: [id number] using josefina and the bronchus was circum-dissected and stapled and divided. The lobe was submitted for pathologic consideration. Bronchial stump was tested and found to be secure. Middle lobe was tacked to lower lobe to prevent torsion. Pulmonary ligament was divided. We also performed mediastinal node dissection. The mediastinum was opened and level 4 nodes were excised and submitted for pathology. Hilar nodes were excised and submitted for pathology and level 7 subcarinal nodes were excised and submitted for pathology. Hemostasis in all of these areas was obtained. When hemostasis was satisfactory, 2 chest tubes were brought through separate stab wounds and the chest was closed to maintain the rib sparing, nerve sparing approach. The patient was taken to the recovery area in good condition having tolerated the procedure well. All counts reported as correct. ��������������������������������������������� <ELECTRONICALLY SIGNED> ���������������������������������������� By: Asa Gil MD ��������������������������������������������� 03/12/19 2057 [id number] [id number] Asa Gil MD /nt
== END 2019-03-08 15:00 | disposition home health service (06) | DRG 163 ==
LOC: ICU 05:37 → 2N 05:37 → TBA 05:37 → PRE 09:23 → ICU 13:35 → 2N 03-03 14:26 → ENTRNSPT 03-08 14:35 → EDTRNSPTSTS 03-08 14:38 → 2N 03-08 15:00
PROVIDERS: Physician Assistant; Surgery Vascular Surgery; ADMIT Internal Medicine
PROC: 07T70ZZ Resection of Thorax Lymphatic, Open Approach (ICD-10-PCS; principal; 2019-03-02)
PROC: 0BTC0ZZ Resection of Right Upper Lung Lobe, Open Approach (ICD-10-PCS; principal; 2019-03-02)
PROC: 0BBC0ZZ Excision of Right Upper Lung Lobe, Open Approach (ICD-10-PCS; principal; 2019-03-02)
PROC: 0BJ08ZZ Inspection of Tracheobronchial Tree, Via Natural or Artificial Opening Endoscopic (ICD-10-PCS; principal; 2019-03-02)
PROC: 0W9900Z Drainage of Right Pleural Cavity with Drainage Device, Open Approach (ICD-10-PCS; principal; 2019-03-02)
DX: C34.11 Malignant neoplasm of upper lobe, right bronchus or lung (principal); G92 Toxic encephalopathy; J96.01 Acute respiratory failure with hypoxia; G89.18 Other acute postprocedural pain; J44.9 Chronic obstructive pulmonary disease, unspecified; I10 Essential (primary) hypertension; D72.829 Elevated white blood cell count, unspecified; Z88.6 Allergy status to analgesic agent; Z88.2 Allergy status to sulfonamides; Z88.8 Allergy status to other drugs, medicaments and biological substances; Z85.3 Personal history of malignant neoplasm of breast; Z82.49 Family history of ischemic heart disease and other diseases of the circulatory system; Z87.11 Personal history of peptic ulcer disease; Z86.73 Personal history of transient ischemic attack (TIA), and cerebral infarction without residual deficits; K22.70 Barrett's esophagus without dysplasia; Z82.3 Family history of stroke; Z80.8 Family history of malignant neoplasm of other organs or systems; Z98.42 Cataract extraction status, left eye; Z98.41 Cataract extraction status, right eye; Z88.0 Allergy status to penicillin; F17.210 Nicotine dependence, cigarettes, uncomplicated
CPT/HCPCS: 10078; 10081; 47405; 50010; 50101; 50386; 50417; 50455; 50497; 50739; 50740; 51301; 52191; 52301; 52303; 54118; 56524; 56525; 56526; 56527; 56528; 57116; 62110; 62900; 65020; 65040; 65075; 65105; 70005

== ENCOUNTER → 2019-09-09 | Outpatient (CLI) | payer OTHER ==
[~2019-09-09] MED LIST changes: +ACETAMINOPHEN325 M1 PO; +MIRALAX17 GM PO
[2019-09-09 09:47] LABS: ABSOLUTE NEUTROPHILS 3.5 thou/uL (1.4-8.2); BASOPHILS 0.7 % (0.0-2.0); EOSINOPHILS 1.9 % (0.0-3.0); HEMATOCRIT 42.9 % (37.0-47.0); HEMOGLOBIN 14.1 gm/dL (12.0-15.0); LYMPHOCYTES 29.2 % (24.0-44.0); MCH 28.1 pg (26.0-34.0); MCHC 32.8 g/dL (28.0-37.0); MCV 85.7 fL (80.0-100.0); PLATELET COUNT 265 thou/uL (150-400); POLYS 58.2 % (36.0-66.0); RDW 15.4 % (10.5-14.5)
[2019-09-09 10:00] LABS: ALBUMIN 3.3 g/dL (3.4-5.0); CALCIUM 8.9 mg/dL (8.5-10.1); CREATININE 0.9 mg/dL (0.6-1.0); POTASSIUM 4.7 mmol/L (3.5-5.1); TOTAL BILIRUBIN 0.6 mg/dL (<0.1-1.0)
== END ==
LOC: CAT 08:59 → RAD 15:35
PROVIDERS: Radiology Radiation Oncology
DX: N63.21 Unspecified lump in the left breast, upper outer quadrant (principal); K76.89 Other specified diseases of liver; M43.8X4 Other specified deforming dorsopathies, thoracic region

== ENCOUNTER → 2019-12-01 | Outpatient (CLI) | payer OTHER | LOC: NUC 10-04 09:48 | DX: C50.812 Malignant neoplasm of overlapping sites of left female breast (principal); Z17.0 Estrogen receptor positive status [ER+]; M85.88 Other specified disorders of bone density and structure, other site; M85.832 Other specified disorders of bone density and structure, left forearm ==

== ENCOUNTER → 2020-06-08 | Outpatient (CLI) | payer OTHER | LOC: LAB 13:50 | PROVIDERS: ATTEND Family Medicine | DX: Z20.828 Contact with and (suspected) exposure to other viral communicable diseases (principal) ==

== ENCOUNTER → 2020-11-30 | Outpatient (CLI) | payer OTHER | LOC: RAD 12:17 | PROVIDERS: ATTEND Pediatrics | DX: R06.00 Dyspnea, unspecified (principal) ==